=== PATIENT | female | born 1995 | race Hispanic/Latino ===

== ENCOUNTER 2019-12-17 23:39 | Outpatient (CLI) | payer MEDICAID ==
[2019-12-18 00:47] VITALS: BP 137/93
== END 2019-12-18 00:52 | disposition home or self-care (01) ==
LOC: TRG 23:39 → APU 23:44 → TRG 12-18 00:52
PROVIDERS: ATTEND Obstetrics & Gynecology
DX: O42.92 Full-term premature rupture of membranes, unspecified as to length of time between rupture and onset of labor (principal); Z3A.37 37 weeks gestation of pregnancy
CPT/HCPCS: 59025